=== PATIENT | female | born 1965 | race Native Hawaiian/Other Pacific Islander ===

== ENCOUNTER 2021-11-18 18:15 | Outpatient (CLI) | payer OTHER ==
[2021-11-18 18:46] LABS: PLATELET COUNT 220 K/uL (152-353)
[2021-11-18 19:11] LABS: POTASSIUM 4.5 mmol/L (3.6-5.2)
== END 2021-11-18 19:17 | disposition home or self-care (01) ==
LOC: LAB 18:15
PROVIDERS: ATTEND Nurse Practitioner Family
DX: R68.82 Decreased libido (principal); G47.00 Insomnia, unspecified; R14.0 Abdominal distension (gaseous); R63.5 Abnormal weight gain; R53.83 Other fatigue; M25.50 Pain in unspecified joint; Z79.899 Other long term (current) drug therapy
CPT/HCPCS: 80053; 80061; 82306; 82607; 82670; 83001; 83036; 84403; 84439; 84443; 85027